=== PATIENT | male | born 1980 | race Caucasian/White ===

== ENCOUNTER 2023-06-16 15:42 | Emergency (ER) | payer SELFPAY ==
[~2023-06-16 15:42] MED LIST: Iopamidol-370 76% 500 ML MDV (1 ML CHARGE) ONE
[2023-06-16] MEDS ORDERED: Dexamethasone 10 MG/ML VIAL ONE (16:59)
[2023-06-16] MEDS ORDERED: Ketorolac Tromethamine 30 MG (1 mL) VIAL ONE (16:59)
[2023-06-16 17:17] LABS: #Basophils 0.1 thou/uL (0.0-0.2); #Neutrophils 11.6 thou/uL (1.40-6.50); %Basophils 0.4 % (0.0-1.0); %Eosinophils 0.1 % (0.0-10.0); %Lymphocytes 14.1 % (21.0-51.0); %Monocytes 6.8 % (0.0-10.0); %Neutrophils 78.2 % (42.0-75.0); Hematocrit 44.4 % (42.0-52.0); Hemoglobin 15.5 g/dL (14.0-18.0); Mean Corpuscular HGB CONC 34.9 g/dL (32.0-36.0); Mean Corpuscular Hemoglobin 30.9 pg (27.0-31.0); Mean Corpuscular Volume 88.6 fl (78.0-98.0); Platelet Count 274 10x3/uL (130-400); Red Blood Cell (RBC) Count 5.01 mill/uL (4.70-6.10); White Blood Cell (WBC) Count 14.9 10x3/uL (4.8-10.8)
[2023-06-16 17:45] LABS: ALT (SGPT) 37 U/L (8-55); AST (SGOT) 18 U/L (5-34); Albumin 4.7 g/dL (3.5-5.0); Alkaline Phosphatase 127 U/L (40-110); Anion Gap 15 mmol/L (10-20); BUN (Urea Nitrogen) 5 mg/dL (8.9-20.6); Bilirubin, Total 0.9 mg/dL (0.2-1.2); Calc. Creatinine Clearance 0 mL/min (70-130); Calcium 9.7 mg/dL (7.8-10.44); Carbon Dioxide 26 mmol/L (22-29); Chloride 100 mmol/L (98-107); Estimated GFR 92; Globulin 3.6 g/dL (2.4-3.5); Glucose 190 mg/dL (70-105); Potassium 4.2 mmol/L (3.5-5.1); Protein, Total 8.3 g/dL (6.0-8.3); Sodium 137 mmol/L (136-145)
== END 2023-06-16 18:47 | disposition home or self-care (01) ==
LOC: ERS 15:42
DX: K04.7 Periapical abscess without sinus (principal); K02.9 Dental caries, unspecified; F17.290 Nicotine dependence, other tobacco product, uncomplicated
CPT/HCPCS: 70491; 80053; 85025; 96374; J1100; J1885; Q9967